=== PATIENT | female | born 1990 | race Caucasian/White ===

== ENCOUNTER 2018-04-23 05:41 | Inpatient (IN) | payer OTHER ==
[2018-04-23] MEDS ORDERED: TERBUTALINE 1 MG/ML VIAL SQ PRN (06:02)
[2018-04-23] MEDS ORDERED: LIDOCAINE 1% (PF) 10 MG/ML (30 ML SDV) SQ PRN (06:02)
[2018-04-23] MEDS ORDERED: METHYLERGONOVINE 0.2 MG/ML 1 ML AMP IM PRN (06:02)
[2018-04-23] MEDS ORDERED: CARBOPROST TROMETHAMINE 250 MCG/ML 1 ML AMP IM PRN (06:02)
[2018-04-23] MEDS ORDERED: OXYTOCIN 10 UNIT/ML 1 ML VIAL IM PRN (06:02)
[2018-04-23 06:16] VITALS: BMI 28.1
[2018-04-23] MEDS: LACTATED RINGERS 1,000 ML IV SCH ×2 (06:22→09:39)
[2018-04-23 06:43] LABS: Basophils % (A) 0 %; Eosinophils # (A) 0.3 k/uL (0-0.7); Eosinophils % (A) 2 %; HGB 13.6 gm/dL (11.4-16.0); Lymphocytes # (A) 2.8 k/uL (1.0-4.8); Lymphocytes % (A) 21 %; MCH 31.7 pg (25.0-35.0); MCHC 32.3 g/dL (31.0-37.0); MCV 98.3 fL (80.0-100.0); Mean Platelet Volume 8.5; Monocytes # (A) 0.6 k/uL (0-1.0); Monocytes % (A) 5 %; Neutrophils # (A) 9.3 k/uL (1.3-7.7); Neutrophils % (A) 70 %; Platelet Count 200 k/uL (150-450); RBC 4.28 m/uL (3.80-5.40); RDW 12.8 % (11.5-15.5); WBC 13.2 k/uL (3.8-10.6)
[2018-04-23] MEDS ORDERED: ROPIVACAINE 100 MG, fentaNYL (PF) 200 MCG in SODIUM CHLORIDE 0.9% 76 ML EPIDURAL ONE (09:44)
[2018-04-23] MEDS ORDERED: diphenhydrAMINE 25 MG CAP PO PRN (11:41)
[2018-04-23] MEDS ORDERED: diphenhydrAMINE 50 MG/ML 1 ML VIAL IVP PRN ×2 (11:41)
[2018-04-23] MEDS ORDERED: HYDROCORTISONE 2.5% RECTAL CREAM 30 GM TUBE RECTAL PRN (11:41)
[2018-04-23] MEDS ORDERED: LANOLIN CREAM 5 GM TUBE TOPICAL PRN (11:41)
[2018-04-23] MEDS ORDERED: SIMETHICONE 80 MG CHEWABLE PO PRN (11:41)
[2018-04-23] MEDS ORDERED: WITCH HAZEL 1 EACH MED..PAD TOPICAL PRN (11:41)
[2018-04-23] MEDS ORDERED: diphenhydrAMINE 50 MG CAP PO PRN (11:41)
[2018-04-23] MEDS ORDERED: ZOLPIDEM 5 MG TAB PO PRN (11:41)
[2018-04-23] MEDS ORDERED: IBUPROFEN 600 MG TAB PO PRN (11:41)
[2018-04-23] MEDS ORDERED: HYDROcodone/APAP 5-325MG 1 EACH TAB PO PRN (11:41)
[2018-04-23] MEDS ORDERED: ACETAMINOPHEN TAB 325 MG TAB PO PRN (11:41)
[2018-04-23] MEDS ORDERED: BENZOCAINE/MENTHOL SPRAY 1 GM/SPRAY AEROSOL TOPICAL PRN (11:41)
--- NOTE | 2018-04-23 11:46 | P.HPOB ---
History of Present Illness H&P Date: 04/23/18 Chief Complaint: 39-6/7 weeks, early active labor The patient is a 27-year-old 7 para 40-4 admitted at 39-6/7 weeks as established by last menstrual period and confirmed by 15 week ultrasound. She is admitted in early active labor with all signs reassuring. She does have a history of a previous section for breech presentation followed by successful vaginal after section and is requesting a trial of labor for this . Her has otherwise been entirely uncomplicated and group B strep status is negative. Obstetrical history: 7 para 40-4 with 2 vaginal deliveries followed by a delivery for breech followed by a successful . Current statistics are listed in history present illness. EDC of 04/24/2018 was established by last menstrual period and confirmed by 15 week ultrasound. Laboratory workup demonstrates a blood type of O+ with a negative antibody screen. Rubella status is immune. The remainder of the laboratory workup was within normal limits and one-hour Glucola is normal and group B strep status is negative. Gynecologic history: Unremarkable with no history of any recent infections to include STDs. She does have remote history of chlamydia. Review of Systems Review of systems is confined to history of present illness. Past Medical History Past Medical History: No Reported History History of Any Multi-Drug Resistant Organisms: None Reported Past Surgical History: Section, Ear Surgery Additional Past Surgical History / Comment(s): myringotomy with tubes lam ears, VTOP Past Anesthesia/Blood Transfusion Reactions: No Reported Reaction Past Psychological History: Anxiety Additional Psychological History / Comment(s): panic attacks Smoking Status: Current every day smoker Past Alcohol Use History: None Reported Additional Past Alcohol Use History / Comment(s): started smoking at age 16 Past Drug Use History: None Reported - Past Family History Mother Family Medical History: No Reported History Additional Family Medical History / Comment(s): hypoglycemic Medications and Allergies Home Medications Medication Instructions Recorded Confirmed Type Vit 84/Iron/FA 1/Dha 1 each PO DAILY 07/19/16 04/23/18 History [Prenate Essential Softgel] Allergies Allergy/AdvReac Type Severity Reaction Status Date / Time No Known Allergies Allergy Verified 04/23/18 05:47 Exam Vital Signs Temp Pulse Resp BP 04/23/18 06:10 97.9 F 77 16 131/83 04/23/18 05:50 97.9 F 77 18 131/83 Intake and Output 04/22/18 04/23/18 04/23/18 22:59 06:59 14:59 Other: Weight 83.915 kg In general, this is a well-developed, well-nourished white female in no acute distress. Her heart has a regular rhythm and rate without murmur. Her lungs are clear to auscultation bilaterally in all rosenthal. Her abdomen is gravid, nondistended, has normal active bowel sounds, soft, nontender, and without any palpable masses aside from the uterine fundus. Her extremities are without any cyanosis, clubbing, or edema and are nontender to palpation bilaterally. Digital cervical examination on straights her cervix to be partially 5-6 out of meters dilated, 70% effaced, the vertex in presentation at -2 station. Artificial rupture of membranes is carried out demonstrating clear fluid. Results Result Diagrams: 04/23/18 06:25 Abnormal Lab Results - Last 24 Hours (Table) 04/23/18 Range/Units 06:25 WBC 13.2 H (3.8-10.6) k/uL Neutrophils # 9.3 H (1.3-7.7) k/uL Assessment and Plan (1) Active labor at term Current Visit: Yes Status: Acute Code(s): SUA4152 - SNOMED Code(s): 15039573 (2) Previous section Current Visit: Yes Status: Acute Code(s): Z98.891 - HISTORY OF UTERINE SCAR FROM PREVIOUS SURGERY SNOMED Code(s): 750523922 Plan: The patient is admitted for active management of labor. She will have close maternal and surveillance and expectant management will be practiced. She does understand the slight risk for vaginal trial of labor following section but has done so successfully in the past. She is a good candidate for either IV or epidural analgesia, whichever she may choose.
--- NOTE | 2018-04-23 11:48 | P.PROBDLV ---
Vaginal Delivery Note - . Vaginal Delivery Note: The patient is a 27-year-old 7 para 40-4 with 3 previous vaginal deliveries, the last of which followed a delivery for breech. She has requested vaginal trial of labor for this . She is admitted at 39-6/7 weeks by good dating parameters in early active labor with all signs reassuring. Her has been uncomplicated and group B strep status is negative. On labor and delivery, she underwent artificial rupture of membranes demonstrating clear fluid. She had an epidural catheter placed for analgesia and progressed to complete fairly quickly. She then pushed over the course of 2 contractions to a normal spontaneous vaginal delivery of a viable 8 lbs. 1 oz. baby boy with Apgars of 8 at 1 minute and 9 at 5 minutes delivered in the direct occiput anterior position. There was a nuchal cord 4 which was reduced following delivery of the . The placenta was delivered spontaneously, intact, and grossly normal with a grossly normal three-vessel cord inserted approximate 4-5 cm from the margin of the disc. There were no lacerations of the perineum, vagina, or cervix. All sponge, instrument, and needle counts were correct. Estimated blood loss is approximately 200 mL. There were no complications. Both mother and infant are resting comfortably in recovery.
[2018-04-23 21:33] VITALS: RESP 16
[2018-04-24] MEDS: SENNOSIDES-DOCUSATE SODIUM 1 EACH TAB PO SCH ×2 (03:15→14:23)
[2018-04-24 08:57] VITALS: BP 121/80; PULSE 82; TEMP 98.1
--- NOTE | 2018-04-24 10:22 | P.DS ---
Providers Date of admission: 04/23/18 05:55 Expected date of discharge: 04/24/18 Attending physician: Zana Ferrara Primary care physician: Stated None - Discharge Diagnosis(es) (1) Active labor at term Current Visit: Yes Status: Acute (2) Previous section Current Visit: Yes Status: Acute (3) Vaginal after section Current Visit: Yes Status: Acute Hospital Course: The patient is a 27-year-old 7 para 4024 admitted at 39-6/7 weeks by good dating parameters. She is admitted in early active labor with all signs reassuring. Her has been uncomplicated though she does have a history of a previous section with one successful vaginal after section since that time. Group B strep status is negative. On labor and delivery, she underwent artificial rupture of membranes demonstrating clear fluid. She had an after catheter placed for analgesia. She then progressed fairly quickly to complete and pushed to a normal spontaneous vaginal delivery of a viable 8 lbs. 1 oz. baby boy with Apgars of 8 at 1 minute and 9 at 5 minutes. Her course was unremarkable with vital signs remaining stable and her temperature was afebrile throughout. She was deemed stable for discharge by day #1 was discharged home to follow-up in the office in 6 weeks' time routinely. Discharge instructions included calling for any significantly increased bleeding or foul-smelling lochia, significantly increased fever abdominal pain, perineal complaints, breast complaints, or anything else that concerned her. She was additionally instructed to have nothing in the vagina for at least 6 weeks time to include intercourse. She understood her instructions and agrees to follow up as noted above. Discharge medications included only [id number] analgesic pain medications as well as continued vitamins as she has opted to breast-feed. Maternal blood type is O+ and rubella status is immune. Procedures: #1. Artificial rupture of membranes #2. Normal spontaneous vaginal delivery, successful Patient Condition at Discharge: Good Plan - Discharge Summary New Discharge Prescriptions: No Action Vit 84/Iron/FA 1/Dha [Prenate Essential Softgel] 1 each PO DAILY Discharge Medication List Vit 84/Iron/FA 1/Dha [Prenate Essential Softgel] 1 each PO DAILY [History] Follow up Appointment(s)/Referral(s): Zana Ferrara MD [STAFF PHYSICIAN] - 6 Weeks Discharge Disposition: HOME SELF-CARE
--- NOTE | 2018-04-25 10:23 | P.MSEPDOC ---
Presenting Problems - Arrival Data Date of Arrival on Unit: 04/23/18 Time of Arrival on Unit: 06:00 Mode of Transport: Wheelchair - Complaint OB-Reason for Admission/Chief Complaint: Possible Onset of Labor Comment: Contractions since 2129 this evening, worse since 199 this am. approximately 4 minutes apart Medical History - Information : 7 Para: 4 Term: 4 : 0 Abortions: Spontaneous or Elective: 2 Number of Living Children: 4 - Gestational Age Gestational Age by ROSEMARY (wks/days): 39 Weeks and 6 Days - History Complications: Smoker Comment: . 2nd child was for breech Review of Systems - Review of Systems Constitutional: No problems Breast: No problems ENT: No problems Cardiovascular: No problems Respiratory: No problems Gastrointestinal: No problems Genitourinary: No problems Musculoskeletal: No problems Neurological: No problems Skin: No problems Vital Signs - Temperature Temperature: 98.1 F Temperature Source: Oral - Pulse Pulse Oximetery Pulse Rate: 82 Pulse Assessment Method: Automatic Cuff - Respirations Respiratory Rate: 16 Oxygen Delivery Method: Room Air - Blood Pressure Sitting Blood Pressure: 121/80 Blood Pressure Mean: 93 Blood Pressure Source: Automatic Cuff Medical Screen Scoring (Pre) - Cervical Exam Dilation: 4-7 cm = 2 Effacement: More than 50% = 2 Membranes: Intact - Uterine Contractions Frequency: > or = 36 weeks =2 Duration: > 40 seconds = 2 Intensity: N/A - Maternal Vital Signs Maternal Temperature: N/A Maternal Blood Pressure: N/A Signs of Preeclampsia: N/A Maternal Respirations: N/A - Pain Assessment Pain Location and Character: Abdomen Pain Scale Used: Numeric (1 - 10) Pain Intensity: 6 Pain Description: Cramping Pain Frequency: Intermittent - Maternal Trauma Maternal Trauma: N/A - Assessment Baseline FHR: 120 Heart Rate - NICHD Category: Category I (Normal) = 0 NST: Reactive Position: N/A Station: N/A - Total Score Total Score (Pre): 8 - Level of Risk Level of Risk: Medium (6-9) Physician Notification (Pre) - Physician Notified Physician Notified Date: 04/23/18 Physician Notified Time: 05:55 Physician/Practitioner Notifed:: Dr. Tipton New Order Received: Yes - Notification Comment Comment: Orders given to admit patient for labor, patient may have epidural if and when needed, call physician when patient is 7 cm. Disposition - Disposition OB Disposition: Admit Transferred to:: [address] 4 Discharge Date: 04/24/18 Discharge Time: 15:20 I agree with the RN Medical Screening Exam: Yes Risk & Benefit of care provided described in d/c instruction: Yes Diagnosis: ENCOUNTER FOR FULL-TERM UNCOMPLICATED DELIVERY
== END 2018-04-24 15:20 | disposition home or self-care (01) | DRG 775 ==
LOC: FBPOP 05:41 → 4FBP 05:55
PROVIDERS: ADMIT Obstetrics & Gynecology; ATTEND Obstetrics & Gynecology
PROC: 10E0XZZ Delivery of Products of Conception, External Approach (ICD-10-PCS; principal; 2018-04-23)
PROC: 00HU33Z Insertion of Infusion Device into Spinal Canal, Percutaneous Approach (ICD-10-PCS; 2018-04-23)
PROC: 3E0R3BZ Introduction of Anesthetic Agent into Spinal Canal, Percutaneous Approach (ICD-10-PCS; 2018-04-23)
DX: O34.211 Maternal care for low transverse scar from previous cesarean delivery (principal); O69.81X0 Labor and delivery complicated by cord around neck, without compression, not applicable or unspecified; O99.334 Smoking (tobacco) complicating childbirth; N85.8 Other specified noninflammatory disorders of uterus; F17.200 Nicotine dependence, unspecified, uncomplicated; Z3A.39 39 weeks gestation of pregnancy; Z37.0 Single live birth; Z79.899 Other long term (current) drug therapy; Z71.6 Tobacco abuse counseling; Z86.59 Personal history of other mental and behavioral disorders
CPT/HCPCS: 59025; 85025; 86850; 86900; 86901; 99213

== ENCOUNTER 2022-02-01 06:39 | Inpatient (IN) | payer OTHER ==
[2022-02-01] MEDS ORDERED: OXYTOCIN 10 UNIT/ML 1 ML VIAL IM PRN (06:59)
[2022-02-01] MEDS ORDERED: LIDOCAINE 0.5% (PF) 5 MG/ML (50 ML SDV) SQ PRN (06:59)
[2022-02-01] MEDS ORDERED: METHYLERGONOVINE 0.2 MG/ML 1 ML AMP IM PRN (06:59)
[2022-02-01] MEDS ORDERED: TERBUTALINE 1 MG/ML VIAL SQ PRN (06:59)
[2022-02-01] MEDS ORDERED: CARBOPROST TROMETHAMINE 250 MCG/ML 1 ML AMP IM PRN (06:59)
[2022-02-01] MEDS ORDERED: LACTATED RINGERS 1,000 ML IV SCH (07:00)
[2022-02-01 07:08] LABS: Basophils # (A) 0.1 k/uL (0-0.2); Basophils % (A) 1 %; Eosinophils # (A) 0.2 k/uL (0-0.7); Eosinophils % (A) 2 %; HCT 43.6 % (34.0-46.0); HGB 14.1 gm/dL (11.4-16.0); Lymphocytes # (A) 2.6 k/uL (1.0-4.8); Lymphocytes % (A) 19 %; MCH 31.8 pg (25.0-35.0); MCHC 32.3 g/dL (31.0-37.0); MCV 98.3 fL (80.0-100.0); Mean Platelet Volume 10.5; Monocytes # (A) 0.7 k/uL (0-1.0); Monocytes % (A) 5 %; Neutrophils # (A) 9.9 k/uL (1.3-7.7); Neutrophils % (A) 72 %; Platelet Count 174 k/uL (150-450); RBC 4.43 m/uL (3.80-5.40); RDW 12.9 % (11.5-15.5); WBC 13.7 k/uL (3.8-10.6)
--- NOTE | 2022-02-01 07:26 | P.PROBDLV ---
Vaginal Delivery Note - . Vaginal Delivery Note: 31-year-old 7 para 5 that presented to labor and delivery with complaints of regular painful contractions. Patient was noted to be 9 cm upon initial evaluation. Patient was taken to labor and delivery suite upon arrival she was noted to be completely dilated, amniotomy was performed and meconium- stained fluid was appreciated. With excellent maternal effort patient pushed the baby down to a presentation. With additional pushes the head followed by anterior/posterior shoulder were delivered along with the body. A loose nuchal cord was appreciated on delivery and delivered through. The umbilical cord was doubly clamped and cut and the was handed to the maternal abdomen. Spontaneous cry was noted at . Placenta was then delivered spontaneously intact with a three-vessel cord. On inspection the patient's vaginal vault no lacerations were appreciated. The uterus was noted be firm and below the umbilicus. Estimated blood loss 200 mL. Patient and infant tolerated delivery well and are resting comfortably.
--- NOTE | 2022-02-01 07:29 | P.HPOB ---
History of Present Illness H&P Date: 02/01/22 Chief Complaint: IUP at 40-4/7 weeks, labor This is a 31-year-old 7 para 6006 at 40-5/7 weeks, EDC based on last menstrual period consistent with 11 week ultrasound. that presents to labor and delivery with complaints of regular painful contractions that started around 4:30 this morning. Patient denies loss of fluid. Patient has had care with Dr. Ferrara. Patient is a known smoker. Patient has a history of a primary for breech presentation followed by 2 successful vaginal after . On bloodwork patient is a known blood type of O+, rubella status immune, B surface antigen negative, HIV negative, RPR nonreactive, group beta strep cultures negative. Review of Systems Constitutional: Denies chills, Denies fatigue, Denies fever Ears, nose, mouth and throat: Denies headache Cardiovascular: Reports leg edema Respiratory: Denies dyspnea Gastrointestinal: Denies constipation, Denies diarrhea, Denies nausea, Denies vomiting Genitourinary: Reports Past Medical History Past Medical History: No Reported History History of Any Multi-Drug Resistant Organisms: None Reported Past Surgical History: Section, Ear Surgery Additional Past Surgical History / Comment(s): myringotomy with tubes lam ears, VTOP Past Anesthesia/Blood Transfusion Reactions: No Reported Reaction Past Psychological History: Anxiety Additional Psychological History / Comment(s): panic attacks Smoking Status: Current every day smoker Past Alcohol Use History: None Reported Additional Past Alcohol Use History / Comment(s): started smoking at age 16 Past Drug Use History: None Reported - Past Family History Mother Family Medical History: No Reported History Additional Family Medical History / Comment(s): hypoglycemic Medications and Allergies Home Medications Medication Instructions Recorded Confirmed Type Multivit No.40/Iron/Folat1/Dha 1 each PO DAILY 07/19/16 02/01/22 History [Prenate Essential Softgel] Allergies Allergy/AdvReac Type Severity Reaction Status Date / Time No Known Allergies Allergy Verified 02/01/22 06:58 Exam Osteopathic Statement: *. No significant issues noted on an osteopathic structural exam other than those noted in the History and Physical/Consult. 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 heart tones noted to be category 1 she is juanita every 3 minutes. Had a means performed and thin meconium-stained fluid is appreciated Results Result Diagrams: 02/01/22 07:00 Abnormal Lab Results - Last 24 Hours (Table) 02/01/22 Range/Units 07:00 WBC 13.7 H (3.8-10.6) k/uL Neutrophils # 9.9 H (1.3-7.7) k/uL Assessment and Plan (1) Active labor at term Current Visit: No Status: Acute Code(s): [id number] - SNOMED Code(s): 39276513 (2) Previous section Current Visit: No Status: Acute Code(s): Z98.891 - HISTORY OF UTERINE SCAR FROM PREVIOUS SURGERY SNOMED Code(s): 492038101 Plan: 31-year-old 7 para 5025 at 40-4/7 weeks that presents in active labor. Amniotomy is performed and meconium-stained fluid is appreciated. Expect normal spontaneous vaginal delivery precipitously.
[2022-02-01] MEDS ORDERED: ZOLPIDEM 5 MG TAB PO PRN (07:30)
[2022-02-01] MEDS ORDERED: HYDROCORTISONE 2.5% RECTAL CREAM 30 GM TUBE RECTAL PRN (07:30)
[2022-02-01] MEDS ORDERED: SIMETHICONE 80 MG CHEWABLE PO PRN (07:30)
[2022-02-01] MEDS ORDERED: OXYTOCIN 30 UNITS/500 ML NS 30 UNIT in SALINE 1 500ML.BAG IV SCH (07:30)
[2022-02-01] MEDS ORDERED: diphenhydrAMINE 50 MG/ML 1 ML VIAL IVP PRN ×2 (07:30)
[2022-02-01] MEDS ORDERED: LANOLIN CREAM 5 GM TUBE TOPICAL PRN (07:30)
[2022-02-01] MEDS ORDERED: BENZOCAINE/MENTHOL SPRAY 1 GM/SPRAY AEROSOL TOPICAL PRN (07:30)
[2022-02-01] MEDS ORDERED: ACETAMINOPHEN TAB 325 MG TAB PO PRN (07:30)
[2022-02-01] MEDS ORDERED: diphenhydrAMINE 50 MG CAP PO PRN (07:30)
[2022-02-01] MEDS ORDERED: diphenhydrAMINE 25 MG CAP PO PRN (07:30)
[2022-02-01] MEDS: SENNOSIDES-DOCUSATE SODIUM 1 EACH TAB PO SCH ×2 (14:54→21:14)
[2022-02-01] MEDS: IBUPROFEN 600 MG TAB PO SCH ×3 (14:54→21:14)
[2022-02-01] MEDS: PRENATAL VIT-IRON-FOLIC ACID 1 EACH TABLET PO SCH (14:54)
[2022-02-02] MEDS: IBUPROFEN 600 MG TAB PO SCH (05:10)
[2022-02-02 08:47] VITALS: PULSE 70; RESP 16; TEMP 97.8
--- NOTE | 2022-02-02 09:33 | P.DS ---
Providers Date of admission: 02/01/22 06:47 Expected date of discharge: 02/02/22 Attending physician: Zana Ferrara Primary care physician: Stated None Hospital Course: This is a 31-year-old female 7 para 5025 EDC 01/27/2022 at 40-5/7 weeks' gestation who presented to the hospital in active spontaneous labor. Group B strep cultures were negative, blood type O+, rubella status immune. Please see dictated history and physical details. Patient swiftly deliver vaginally a liveborn female , weighed 7 lbs. 15 oz. or 3590 g. There were no lacerations noted. Nuchal cord 1. Please see dictated delivery note for details. This morning the patient is doing well. She is voiding, and bleeding, passing flatus without difficulty. Vital signs are stable and she is afebrile. Fundus is firm and in the midline, symmetric and 18 week size. Extremities are negative for edema. is doing well. Patient is judged to be in good condition for discharge home. I have given her prescription for a double electric breast pump per her request. She will use [id number] Advil or Aleve, or Motrin as needed for pain. She will call with any fevers shakes or chills, foul smelling or copious lochia, with the passage of large blood clots, with any pain not alleviated by [id number] products, or indeed with any concerns. I have discussed with her contraceptive options and she will discuss this further with her primary physician Assessment: Doing well first post day Patient Condition at Discharge: Good Plan - Discharge Summary Discharge Rx Participant: No New Discharge Prescriptions: No Action Multivit No.40/Iron/Folat1/Dha [Prenate Essential Softgel] 1 each PO DAILY Discharge Medication List Multivit No.40/Iron/Folat1/Dha [Prenate Essential Softgel] 1 each PO DAILY 07/19/16 [History] Follow up Appointment(s)/Referral(s): Zana Ferrara MD [STAFF PHYSICIAN] - 6 Weeks Discharge Disposition: HOME SELF-CARE
[2022-02-02 10:02] VITALS: BP 129/87
[2022-02-02] MEDS: SENNOSIDES-DOCUSATE SODIUM 1 EACH TAB PO SCH (12:05)
[2022-02-02] MEDS: PRENATAL VIT-IRON-FOLIC ACID 1 EACH TABLET PO SCH (12:06)
== END 2022-02-02 11:05 | disposition home or self-care (01) | DRG 807 ==
LOC: FBPOP 06:39 → 4FBP 06:47
PROVIDERS: ADMIT Obstetrics & Gynecology; ATTEND Obstetrics & Gynecology
PROC: 10E0XZZ Delivery of Products of Conception, External Approach (ICD-10-PCS; principal; 2022-02-01)
DX: O34.219 Maternal care for unspecified type scar from previous cesarean delivery (principal); Z37.0 Single live birth; O69.81X0 Labor and delivery complicated by cord around neck, without compression, not applicable or unspecified; F17.200 Nicotine dependence, unspecified, uncomplicated; O77.0 Labor and delivery complicated by meconium in amniotic fluid; O99.334 Smoking (tobacco) complicating childbirth; Z3A.40 40 weeks gestation of pregnancy
CPT/HCPCS: 85025; 86850; 86900; 86901

== ENCOUNTER 2024-09-17 17:12 | Emergency (ER) | payer OTHER ==
--- NOTE | 2024-09-17 18:00 | ED ---
Female Urogenital HPI - General Chief complaint: Vaginal Bleeding Stated complaint: possible miscarriage Time Seen by Provider: 09/17/24 17:50 Source: patient, RN notes reviewed Mode of arrival: ambulatory Limitations: no limitations - History of Present Illness Initial comments: This is a 33-year-old female who presents to the emergency department for v aginal bleeding in . Patient is and approximately 10 to 11 weeks . Reports vaginal bleeding for the last couple of days with lower abdominal cramping. She has passed a few clots but states that the bleeding is primarily just spotting at this point. She is not currently established with an [facility] for this . MD Complaint: vaginal bleeding - Related Data Home Medications Medication Instructions Recorded Confirmed Multivit No.40/Iron/Folat1/Dha 1 each PO DAILY 07/19/16 02/01/22 [Prenate Essential Softgel] Allergies Allergy/AdvReac Type Severity Reaction Status Date / Time No Known Allergies Allergy Verified 09/17/24 18:28 Review of Systems ROS Statement: Those systems with pertinent positive or pertinent negative responses have been documented in the HPI. ROS Other: All systems not noted in ROS Statement are negative. Past Medical History Past Medical History: No Reported History History of Any Multi-Drug Resistant Organisms: None Reported Past Surgical History: Section, Ear Surgery Additional Past Surgical History / Comment(s): myringotomy with tubes lam ears, VTOP Past Anesthesia/Blood Transfusion Reactions: No Reported Reaction Past Psychological History: Anxiety Additional Psychological History / Comment(s): panic attacks Smoking Status: Current every day smoker Past Alcohol Use History: None Reported Additional Past Alcohol Use History / Comment(s): started smoking at age 16 Past Drug Use History: None Reported - Past Family History Mother Family Medical History: No Reported History Additional Family Medical History / Comment(s): hypoglycemic General Exam Limitations: no limitations General appearance: alert, in no apparent distress Head exam: Present: atraumatic, normocephalic, normal inspection Respiratory exam: Present: normal lung sounds bilaterally. Absent: respiratory distress, wheezes, rales, rhonchi, stridor Cardiovascular Exam: Present: regular rate, normal rhythm, normal heart sounds. Absent: systolic murmur, diastolic murmur, rubs, gallop, clicks Neurological exam: Present: alert, oriented X3, CN II-XII intact Psychiatric exam: Present: normal affect, normal mood Skin exam: Present: warm, dry, intact, normal color. Absent: rash Course Vital Signs 09/17/24 09/17/24 18:28 20:29 Temperature 98.8 F 98.7 F Pulse Rate 103 H 94 Respiratory 20 19 Rate Blood Pressure 140/80 136/80 O2 Sat by Pulse 99 97 Oximetry Medical Decision Making - Medical Decision Making This is a 33 year old female who presents to the emergency department for vaginal bleeding in . Was pt. sent in by a medical professional or institution? @ -No Did you speak to anyone other than the patient for history? @ -No Did you review nursing and triage notes? @ -Yes, and I agree, it is accurate with regards to the patient's symptoms. Were old charts reviewed? @ -No Differential Diagnosis? @ -Differential Vaginal Bleeding: Spontaneous , threatened , molar , ectopic , incompetent cervix, placenta previa, uterine rupture, dysfunctional uterine bleeding, hemorrhage, uterine fibroids, malignancy, coagulopathy, PID, cervicitis, adenomyosis, vaginal trauma, this is not meant to be an all- inclusive list. EKG interpreted by me (3pts min.)? @ -Not obtained X-rays interpreted by me (1pt min.)? @ -Not obtained CT interpreted by me (1pt min.)? @ -Not obtained U/S interpreted by me (1pt. min.)? @ -Obstetrics ultrasound obtained. My interpretation identifies a single live intrauterine . What testing was considered but not performed? (CT, X-rays, U/S, labs)? Why? @ -None What meds were considered but not given? Why? @ -None Did you discuss the management of the patient with other professionals? @ -No Did you reconcile home meds? @ -No Was smoking cessation discussed for >3mins.? @ -No Was critical care preformed (if so, how long)? @ -No Were there social determinants of health that impacted care today? How? (Homelessness, low income, unemployed, alcoholism, drug addiction, avalos sportation, low edu. Level, literacy, decrease access to med. care, long term, rehab)? @ -No Was there de-escalation of care discussed even if they declined? (Discuss DNR or withdrawal of care, Hospice)? @ -No What co-morbidities impacted this encounter? (DM, HTN, Smoking, COPD, CAD, Cancer, CVA, Hep., AIDS, mental health diagnosis, sleep apnea, morbid obesity)? @ - Was patient admitted / discharged? @ -Discharged. [place] [address]. She is Rh+ and no RhoGAM is indicated. Urinalysis negative for signs of infection. Obstetrics ultrasound demonstrates a single live intrauterine with a subchorionic hemorrhage. Findings reviewed with the patient in that this is likely the cause of her bleeding. Advised she needs to make sure she becomes established with an [facility] for ongoing obstetrics care and reevaluation. Patient discharged home in stable condition. Case discussed with ED attending Dr. Corbett. Return precautions reviewed in depth, the patient is instructed to return to the emergency department with any new, worsening, or concerning symptoms. Patient verbalized understanding. Undiagnosed new problem with uncertain prognosis? @ -None Drug Therapy requiring intensive monitoring for toxicity (Heparin, Nitro, Insulin, Cardizem)? @ -None Were any procedures done? @ -None Diagnosis/symptom? @ -Vaginal bleeding in , subchorionic hemorrhage Acute, or Chronic, or Acute on Chronic? @ -Acute Uncomplicated (without systemic symptoms) or Complicated (systemic symptoms)? @ -Uncomplicated Side effects of treatment? @ -None Exacerbation, Progression, or Severe Exacerbation] @ -Not applicable Poses a threat to life or bodily function? @ -No - Lab Data Result diagrams: 09/17/24 19:00 09/17/24 19:00 Lab Results 09/17/24 09/17/24 09/17/24 Range/Units 19:00 19:00 19:00 WBC 11.1 H (3.8-10.6) k/uL RBC 4.62 (3.80-5.40) m/uL Hgb 14.8 (11.4-16.0) gm/dL Hct 43.5 (34.0-46.0) % MCV 94.2 (80.0-100.0) fL MCH 32.0 (25.0-35.0) pg MCHC 34.0 (31.0-37.0) g/dL RDW 11.4 L (11.5-15.5) % Plt Count 211 (150-450) k/uL MPV 8.0 Neutrophils % 73 % Lymphocytes % 19 % Monocytes % 4 % Eosinophils % 2 % Basophils % 0 % Neutrophils # 8.2 H (1.3-7.7) k/uL Lymphocytes # 2.1 (1.0-4.8) k/uL Monocytes # 0.5 (0-1.0) k/uL Eosinophils # 0.2 (0-0.7) k/uL Basophils # 0.0 (0-0.2) k/uL Sodium 136 L (137-145) mmol/L Potassium 3.9 (3.5-5.1) mmol/L Chloride 103 (98-107) mmol/L Carbon Dioxide 19 L (22-30) mmol/L Anion Gap 14 mmol/L BUN 14 (7-17) mg/dL Creatinine 0.85 (0.52-1.04) mg/dL Est GFR (CKD-EPI)AfAm >90 (>60 ml/min/1.73 sqM) Est GFR (CKD-EPI)NonAf >90 (>60 ml/min/1.73 sqM) Glucose 99 (74-99) mg/dL Calcium 9.8 (8.4-10.2) mg/dL Total Bilirubin 0.4 (0.2-1.3) mg/dL AST 22 (14-36) U/L ALT 18 (4-34) U/L Alkaline Phosphatase 49 (38-126) U/L Total Protein 8.5 H (6.3-8.2) g/dL Albumin 5.1 H (3.5-5.0) g/dL HCG, Quant 89017.3 mIU/mL Urine Color Urine Appearance (Clear) Urine pH (5.0-8.0) Ur Specific [place] (1.001-1.035) Urine Protein (Negative) Urine Glucose (UA) (Negative) Urine Ketones (Negative) Urine Blood (Negative) Urine Nitrite (Negative) Urine Bilirubin (Negative) Urine Urobilinogen (<2.0) mg/dL Ur Leukocyte Esterase (Negative) Urine RBC (0-5) /hpf Urine WBC (0-5) /hpf Ur Squamous Epith Cells (0-4) /hpf Urine Mucus (None) /hpf Blood Type O Positive Blood Type Recheck O Pos Bld Type Recheck Status No 09/17/24 Range/Units 19:20 WBC (3.8-10.6) k/uL RBC (3.80-5.40) m/uL Hgb (11.4-16.0) gm/dL Hct (34.0-46.0) % MCV (80.0-100.0) fL MCH (25.0-35.0) pg MCHC (31.0-37.0) g/dL RDW (11.5-15.5) % Plt Count (150-450) k/uL MPV Neutrophils % % Lymphocytes % % Monocytes % % Eosinophils % % Basophils % % Neutrophils # (1.3-7.7) k/uL Lymphocytes # (1.0-4.8) k/uL Monocytes # (0-1.0) k/uL Eosinophils # (0-0.7) k/uL Basophils # (0-0.2) k/uL Sodium (137-145) mmol/L Potassium (3.5-5.1) mmol/L Chloride (98-107) mmol/L Carbon Dioxide (22-30) mmol/L Anion Gap mmol/L BUN (7-17) mg/dL Creatinine (0.52-1.04) mg/dL Est GFR (CKD-EPI)AfAm (>60 ml/min/1.73 sqM) Est GFR (CKD-EPI)NonAf (>60 ml/min/1.73 sqM) Glucose (74-99) mg/dL Calcium (8.4-10.2) mg/dL Total Bilirubin (0.2-1.3) mg/dL AST (14-36) U/L ALT (4-34) U/L Alkaline Phosphatase (38-126) U/L Total Protein (6.3-8.2) g/dL Albumin (3.5-5.0) g/dL HCG, Quant mIU/mL Urine Color Yellow Urine Appearance Cloudy H (Clear) Urine pH 6.5 (5.0-8.0) Ur Specific [place] 1.030 (1.001-1.035) Urine Protein Trace H (Negative) Urine Glucose (UA) Negative (Negative) Urine Ketones Negative (Negative) Urine Blood Negative (Negative) Urine Nitrite Negative (Negative) Urine Bilirubin Negative (Negative) Urine Urobilinogen 2.0 (<2.0) mg/dL Ur Leukocyte Esterase Negative (Negative) Urine RBC 3 (0-5) /hpf Urine WBC 1 (0-5) /hpf Ur Squamous Epith Cells 2 (0-4) /hpf Urine Mucus Rare H (None) /hpf Blood Type Blood Type Recheck Bld Type Recheck Status - Radiology Data Radiology results: report reviewed, image reviewed Disposition Clinical Impression: Subchorionic hemorrhage, Vaginal bleeding in Disposition: HOME SELF-CARE Instructions (If sedation given, give patient instructions): Subchorionic Hemorrhage (ED) Additional Instructions: Return to the emergency department with any new, worsening, or concerning symptoms. Take Tylenol as needed for any cramping. Make sure you become established with an [facility] for ongoing obstetrics care. Is patient prescribed a controlled substance at d/c from ED?: No Referrals: Micheal Beard MD [Primary Care Provider] - 1-2 days Zana Ferrara MD [STAFF PHYSICIAN] - 1-2 days Time of Disposition: 20:26
[2024-09-17 19:14] LABS: Basophils % (A) 0 %; Eosinophils # (A) 0.2 k/uL (0-0.7); Eosinophils % (A) 2 %; HCT 43.5 % (34.0-46.0); HGB 14.8 gm/dL (11.4-16.0); Lymphocytes # (A) 2.1 k/uL (1.0-4.8); Lymphocytes % (A) 19 %; MCV 94.2 fL (80.0-100.0); Monocytes # (A) 0.5 k/uL (0-1.0); Monocytes % (A) 4 %; Neutrophils # (A) 8.2 k/uL (1.3-7.7); Neutrophils % (A) 73 %; Platelet Count 211 k/uL (150-450); RBC 4.62 m/uL (3.80-5.40); RDW 11.4 % (11.5-15.5); WBC 11.1 k/uL (3.8-10.6)
[2024-09-17 19:30] LABS: ALT 18 U/L (4-34); AST 22 U/L (14-36); African American GFR (CKD) >90 (>60 ml/min/1.73 sqM); Albumin 5.1 g/dL (3.5-5.0); Alkaline Phosphatase 49 U/L (38-126); Anion Gap 14 mmol/L; Blood Urea Nitrogen 14 mg/dL (7-17); Calcium 9.8 mg/dL (8.4-10.2); Carbon Dioxide 19 mmol/L (22-30); Chloride 103 mmol/L (98-107); Glucose 99 mg/dL (74-99); Non-African American GFR(CKD) >90 (>60 ml/min/1.73 sqM); Potassium 3.9 mmol/L (3.5-5.1); Sodium 136 mmol/L (137-145); Total Bilirubin 0.4 mg/dL (0.2-1.3); Total Protein 8.5 g/dL (6.3-8.2)
[2024-09-17 19:32] LABS: Appearance,Urine Cloudy (Clear); Bilirubin,Urine Negative (Negative); Blood,Urine Negative (Negative); Color,Urine Yellow; Glucose,Urine (UA) Negative (Negative); Ketones,Urine Negative (Negative); Leukocyte Esterase,Urine Negative (Negative); Mucus,Urine Rare /hpf; Nitrite,Urine Negative (Negative); PH, Urine 6.5 (5.0-8.0); Protein,Urine Trace (Negative); RBC,Urine 3 /hpf (0-5); Squamous Epithelial Cell,Urine 2 /hpf (0-4); WBC,Urine 1 /hpf (0-5)
--- NOTE | 2024-09-17 20:15 | US ---
EXAMINATION TYPE: Transabdominal DATE OF EXAM: 09/17/2024 7:48 PM COMPARISON: NONE CLINICAL INDICATION: Female, 33 years old with history of Vaginal bleeding in ; TECHNIQUE: with grayscale and color Doppler imaging including first trimester . FINDINGS: EXAM MEASUREMENTS: GESTATIONAL AGE / DATING Physician Established: Not yet established Dates by LMP: (10 weeks/5 days) EDC: 04/10/2025 Dates by First Scan: No previous this is first scan Dates by Current Scan for: (11 weeks/2 days) EDC: 04/06/2025 MATERNAL ANATOMY Uterus: 11.2 x 7.9 x 10.1cm Right Ovary: 3.4 x 1.9 x 1.9cm Left Ovary: 2.8 x 2.0 x 2.4cm Post CDS / Adnexa: wnl Presence of free fluid: no Presence of corpus luteal cyst: not seen Presence of subchorionic bleed: 2.9 x 1.4 x 1.9cm GESTATION / SURVEY CRL: 4.4cm (11 weeks/2 days) Yolk Sac (normal less than 6mm): 4.7mm Cardiac Activity/Heart Rate: 165 bpm Rhythm: Normal IUP: Viable IUP Date of LMP: 07/04/2024 Beta HcG (if available): Not available at time of exam IMPRESSION: 1. Single intrauterine gestation estimated at 11 weeks 2 days gestation based on current crown-rump l ength ultrasound measurements. Cardiac activity measures 165 bpm 2. There is a subchorionic hemorrhage present [facility], Workstation: [facility], 09/17/2024 8:13 PM
[2024-09-17 20:30] VITALS: BP 136/80; PULSE 94; RESP 19; TEMP 98.7
[2024-09-17 20:51] LABS: HCG,Quantitative Serum 70165.3 mIU/mL
== END 2024-09-17 20:31 | disposition home or self-care (01) ==
LOC: EC 17:12
DX: O20.9 Hemorrhage in early pregnancy, unspecified (principal); O99.331 Smoking (tobacco) complicating pregnancy, first trimester; F17.200 Nicotine dependence, unspecified, uncomplicated; Z3A.11 11 weeks gestation of pregnancy
CPT/HCPCS: 36415; 76801; 80053; 81001; 84702; 85025; 86900; 86901; 99284